=== PATIENT | male | born 1960 | race Two or more races ===

== ENCOUNTER → 2020-12-02 13:03 | Outpatient (BNVA) | payer OTHER, SELFPAY | PROVIDERS: PCP Psychiatry & Neurology Psychiatry; Visit Provider Internal Medicine Cardiovascular Disease | DX: R07.2 Precordial pain (principal) | CPT/HCPCS: 93005; 99202 ==

== ENCOUNTER → 2020-12-11 08:59 | Outpatient (REF) | payer OTHER, SELFPAY ==
--- NOTE | 2020-12-11 09:06 | CA_ITS ---
Acquisition Time: 2020-12-11 09:17:05 Total Exercise Time: 00:04:06 Test Indications: CP Medications: SEE CHART Protocol: TERE Max HR: 155 BPM 97% of Pred: 159 BPM Max BP: 204/066 mmHG Max Work Load: 5.9 METS Exercise stress test using Tere protocol, total of 4 min 6 sec. METS 5.90, MAPHR up to 97%. Pt became severely SOB and test was terminated. Denies CP. Upsloaping ST depressions seen inferiorly and laterally that normalized in recovery. No arrhythmias. Hypertensive response to exercise. Test reviewed with Dr. Marin, Communication sent to Dr. Hinojosa Referred By: Alo Hinojosa Overread By: Deepali Dos Santos NP
== END ==
LOC: HO.CARD 08:59
PROVIDERS: Visit Provider Internal Medicine Cardiovascular Disease
DX: R07.2 Precordial pain (principal)
CPT/HCPCS: 93017

== ENCOUNTER → 2020-12-21 15:38 | Outpatient (BNVA) | payer OTHER, SELFPAY | PROVIDERS: Visit Provider Internal Medicine Cardiovascular Disease ==

== ENCOUNTER → 2021-01-13 15:17 | Outpatient (REF) | payer OTHER, SELFPAY ==
--- NOTE | 2021-01-13 15:21 | CA_ITS ---
Transthoracic Echocardiogram Patient (Last, First, Middle): ANDREA ORTIZ, Gender: Male Date of : 1960 Age: 60 Procedure Date: 01/13/2021 Procedure Type: Transthoracic Echocardiogram Location: OP Height: 172.72 cm Weight: 75.01 kg BSA: 1.89 m2 Heart Rate: bpm BP: 130 / 72 mmHg Hands And Dial Inspector: Referring MD: Alo Hinojosa MD Symptoms: R07.2 - Precordial pain Study Quality: Good ECG Rhythm: Sinus Conclusions: - The left ventricular systolic function is normal. The calculated ejection fraction is 66% by biplane method. - No obvious valvular pathology seen on this study. Findings Left Ventricle Normal left ventricular cavity size. There is normal left ventricular wall thickness. The left ventricular systolic function is normal. The calculated ejection fraction is 66% by biplane method. There is no evidence of regional wall motion abnormalities. Diastolic function is normal for age. Right Ventricle Normal right ventricular cavity size and systolic function. Atria Both atria are normal in size. Aortic Valve There is a normal trileaflet aortic valve. There is no aortic valve stenosis. There is no aortic valve regurgitation. Mitral Valve The mitral valve appears normal. There is no mitral valve regurgitation. There is no mitral valve stenosis. Pulmonic Valve The pulmonic valve is likely normal. Tricuspid Valve Normal tricuspid valve structure. There is trace tricuspid valve regurgitation. The pulmonary artery systolic pressure is normal. Great Vessels The asc aorta is normal in size. Venous The inferior vena cava is normal in size and collapses greater than 50% with inspiration. Pericardium/Pleural There is no evidence of pericardial effusion. Prior Study Comparison No prior study available for comparison. Recommendations, Care & Conclusions No obvious valvular pathology seen on this study. Measurements 2D Linear Measurements IVSd: 1.02 0.6-0.9/0.6-1.0 cm LVIDd: 3.82 3.9-5.3/4.2-5.9 cm LVIDd Index: 2.02 2.4-3.2/2.2-3.1 cm/m2 LVIDs: 2.21 2.0-3.6 cm LVPWd: 1.07 0.7-1.1 cm Ao Root: 3.70 2.1-3.5 cm LA Diam: 3.10 2.7-3.8/3.0-4.0 cm LAIDs Index: 1.64 1.5-2.3 cm/m2 LV Mass: 156.71 67-162/88-224 g LV Mass Index: 82.92 43-95/49-115 g/m2 LVOT Diam: 2.00 3.0+(-)1.3 cm 2D Systolic Function EF 4C: 63.90 >55% EF 2C: 67.30 >55% EF BiP: 65.80 >55% Mitral Valve MV Pk E: 0.64 MV PK A: 0.88 MV Decel Time: 236.00 E/A: 0.70 E'Lateral: 9.14 E'Medial: 7.51 E/E' Med: 8.60 E/E' Lat: 7.00 PHT: 69.00 MVA PHT: 3.19 Decel [place]: 2.73 Aortic Valve AoV Pk Alistair: 1.43 AoV Mn [place]istair: 0.82 AoV VTI: 0.29 AoV Pk Grad: 8.00 Aov Mn Grad: 3.00 HUMAIRA Cont.VTI: 2.50 LVOT LVOT Pk [place]istair: 0.95 LVOT Mn [place]: 0.60 LVOT VTI: 0.23 LVOT Pk Grad: 4.00 LVOT Mn Grad: 2.00 LVOT Diam: 2.00 LVOT Area: 3.14 Diastolic Function MV Pk E: 0.64 MV Pk A: 0.88 E/A: 0.70 E'Medial: 7.51 E/E' Med: 8.60 E' Laterial: 9.14 E/E' Lat: 7.00 Right Ventricle TAPSE (mm): 21.00 TVS' Alistair: 12.00 Tricuspid Valve TR Pk Alistair: 1.62 TR Pk Grad: 10.00 Great Vessels Aorta Ao Root-2D: 3.70 2.0-3.7 cm Ao Asc: 3.40 2.1-3.4 cm Pulmonary Valve PV Pk Alistair: 1.18 Peak PV Grad: 6.00 Updated in Other Vendor System with Status of Final Demian Vasquez MD electronically signed on 01/14/2021 11:46:46 AM with status of Final
== END ==
LOC: HO.CARD 15:17
PROVIDERS: Visit Provider Internal Medicine Cardiovascular Disease
DX: R07.2 Precordial pain (principal)
CPT/HCPCS: 93306

== ENCOUNTER → 2021-07-01 13:47 | Outpatient (BNVA) | payer OTHER, SELFPAY | PROVIDERS: Visit Provider Nurse Practitioner Family | DX: I25.10 Atherosclerotic heart disease of native coronary artery without angina pectoris (principal); R06.02 Shortness of breath; R07.2 Precordial pain; Z95.1 Presence of aortocoronary bypass graft; Z98.890 Other specified postprocedural states | CPT/HCPCS: 99212 ==

== ENCOUNTER → 2022-03-15 14:21 | Outpatient (BNVA) | payer OTHER, SELFPAY | PROVIDERS: PCP Internal Medicine; Visit Provider Nurse Practitioner Family | DX: R07.2 Precordial pain (principal); R06.02 Shortness of breath; I25.10 Atherosclerotic heart disease of native coronary artery without angina pectoris; Z95.1 Presence of aortocoronary bypass graft; Z98.890 Other specified postprocedural states | CPT/HCPCS: 93005; 99212 ==

== ENCOUNTER → 2022-04-01 13:04 | Outpatient (REF) | payer OTHER, SELFPAY ==
--- NOTE | 2022-04-01 13:14 | CA_ITS ---
Transthoracic Echocardiogram Patient (Last, First, Middle): ANDREA ORTIZ, Gender: Male Date of : 1960 Age: 61 Procedure Date: 04/01/2022 Procedure Type: Transthoracic Echocardiogram Location: OP Height: 167.64 cm Weight: 68.01 kg BSA: 1.77 m2 Heart Rate: 66 bpm BP: 118 / 60 mmHg Timing Adjuster: TABATHA Referring MD: Vanessa Coffman [employer] SALES COUNTER MANAGER-C Symptoms: Z95.1 - Presence of aortocoronary bypass graft Study Quality: Good ECG Rhythm: Sinus Conclusions: - The left ventricular systolic function is normal. The calculated ejection fraction is 58% by biplane method. - There is mildly decreased right ventricular systolic function. - No obvious valvular pathology seen on this study. Findings Left Ventricle Normal left ventricular cavity size. There is normal left ventricular wall thickness. The left ventricular systolic function is normal. The calculated ejection fraction is 58% by biplane method. There is no evidence of regional wall motion abnormalities. There is paradoxical septal motion consistent with post-operative status. Diastolic function is normal for age. Right Ventricle Normal right ventricular cavity size. There is mildly decreased right ventricular systolic function. Atria Both atria are normal in size. Aortic Valve There is a normal trileaflet aortic valve. There is no aortic valve stenosis. There is no aortic valve regurgitation. Mitral Valve The mitral valve appears normal. There is no mitral valve regurgitation. There is no mitral valve stenosis. Pulmonic Valve The pulmonic valve is likely normal. Tricuspid Valve Normal tricuspid valve structure. There is trace tricuspid valve regurgitation. There is no evidence of pulmonary hypertension. Great Vessels The aortic annulus, sinuses of valsalva, and asc aorta are normal in size. Venous The inferior vena cava is normal in size and collapses greater than 50% with inspiration. Pericardium/Pleural There is no evidence of pericardial effusion. Prior Study Comparison No significant change compared to prior study dated: 01/13/2021. Recommendations, Care & Conclusions No obvious valvular pathology seen on this study. Measurements 2D Linear Measurements IVSd: 0.70 0.6-0.9/0.6-1.0 cm LVIDd: 4.61 3.9-5.3/4.2-5.9 cm LVIDd Index: 2.60 2.4-3.2/2.2-3.1 cm/m2 LVIDs: 2.92 2.0-3.6 cm LVPWd: 0.82 0.7-1.1 cm Ao Root: 3.40 2.1-3.5 cm LA Diam: 3.80 2.7-3.8/3.0-4.0 cm LAIDs Index: 2.15 1.5-2.3 cm/m2 LV Mass: 138.26 67-162/88-224 g LV Mass Index: 78.11 43-95/49-115 g/m2 LVOT Diam: 2.10 3.0+(-)1.3 cm 2D Systolic Function EF 4C: 60.60 >55% EF 2C: 57.50 >55% EF BiP: 57.80 >55% Mitral Valve MV Pk E: 0.53 MV PK A: 0.73 MV Decel Time: 238.00 E/A: 0.70 E'Lateral: 12.90 E'Medial: 5.11 E/E' Med: 10.30 E/E' Lat: 4.10 PHT: 70.00 MVA PHT: 3.14 Decel [place]: 2.22 Aortic Valve AoV Pk Alistair: 1.35 AoV Mn Alistair: 0.79 AoV VTI: 0.28 AoV Pk Grad: 7.00 Aov Mn Grad: 3.00 HUMAIRA Cont.VTI: 2.74 LVOT LVOT Pk Alistair: 1.02 LVOT Mn Alistair: 0.64 LVOT VTI: 0.22 LVOT Pk Grad: 4.00 LVOT Mn Grad: 2.00 LVOT Diam: 2.10 LVOT Area: 3.46 Diastolic Function MV Pk E: 0.53 MV Pk A: 0.73 E/A: 0.70 E'Medial: 5.11 E/E' Med: 10.30 E' Laterial: 12.90 E/E' Lat: 4.10 Right Ventricle TAPSE (mm): 14.00 TVS' Alistair: 7.00 Tricuspid Valve TR Pk Alistair: 1.51 TR Pk Grad: 9.00 RA Press: 3.00 RVSP: 12.00 Great Vessels Aorta Ao Root-2D: 3.40 2.0-3.7 cm Ao Asc: 3.40 2.1-3.4 cm Pulmonary Valve PV Pk Alistair: 1.06 Peak PV Grad: 4.00 Updated in Other Vendor System with Status of Final Demian Vasquez MD electronically signed on 04/02/2022 12:51:53 PM with status of Final
== END ==
LOC: HO.CARD 13:04
PROVIDERS: PCP Internal Medicine; Visit Provider Nurse Practitioner Family
DX: Z95.1 Presence of aortocoronary bypass graft (principal)
CPT/HCPCS: 93306

== ENCOUNTER 2023-01-26 14:50 | Outpatient (AMB) | payer SELFPAY ==
--- NOTE | 2023-01-26 14:52 | A.OFFVIS_ITS ---
Intake Vital Signs 01/26/23 14:53 Height 5 ft 8.5 in Weight 158 lb 11.725 oz BMI 23.8 BP 120/82 Blood Pressure Location Lt brachial Position Sitting Pulse 59 Intake Visit Reasons: OVERDUE FOLLOW UP Intake Note: overdue f/up having some chest discomfort when bending Windows Application Administrator Required: No Needle Loom Setter: Needle Loom Setter Present Accompanied by: Son Allergies No Known Allergies Allergy (Verified 01/26/23 15:01) Medication List - Last Reconciled 01/26/23 by Vanessa Coffman NP-C aspirin (Adult Aspirin Regimen) 81 mg PO DAILY atorvastatin 80 mg PO QPM HPI OVERDUE FOLLOW UP HPI Details Herbert is a 62-year-old male who previously reported shortness of breath and chest discomfort.? He had abnormal stress test and underwent cardiac catheterization showing severe ostial circumflex disease and distal left main disease then undergoing a 3 vessel Coronary artery bypass grafting on 05/18/2021.? His last prior visit to the office was 03/15/2022. Today he reports he has been feeling very well since his last visit. He has no reports of chest discomfort at rest or with activity. No shortness of breath, palpitations, presyncope, syncope, PND, orthopnea or edema. He takes all his meds as directed. He works part-time in a [employer] store. Son is present and assisting with translation at his request. [facility] Medical History CAD (coronary artery disease) Surgical History Status post cardiac catheterization Status post coronary artery bypass graft Family History Father No problems noted. Mother No problems noted. Social History Patient Tobacco Use Status: Never used Tobacco Review of Systems Const All systems reviewed & are unremarkable except as noted in HPI and below ENT Denies dizziness Card Denies chest pain, Denies chest pain at rest, Denies chest pain with activity, Denies rapid heart rate, Denies pedal edema, Denies edema, Denies leg edema, Denies lightheadedness, Denies palpitations, Denies dyspnea, Denies dyspnea on exertion and Denies orthopnea Resp Denies cough, Denies dyspnea and Denies dyspnea on exertion GI Denies hematochezia and Denies change in stool character Musc Denies abnormal gait, Denies limited range of motion, Denies muscle cramps, Denies muscle weakness, Denies numbness, Denies radiating pain into limb, Denies stiffness and Denies tingling Neuro Denies abnormal gait, Denies dizziness, Denies numbness and Denies tingling Endo Denies palpitations Physical Exam Vital Signs: Last Vital Signs Pulse 59 01/26/23 14:53 BP 120/82 01/26/23 14:53 BMI result Body Mass Index 23.8 Const General: cooperative, healthy appearing, comfortable and no acute distress Orientation/consciousness: patient oriented x3 Neck Neck: Yes normal visual inspection and Yes no JVD Resp Effort & Inspection: normal respiratory effort Auscultation: clear to auscultation bilaterally, no crackles, no rales, no rhonchi and no wheezes Cardio Jugular venous distension: no JVD Rate: regular rate Rhythm: regular rhythm Heart sounds: S1 normal heart sound present, S2 normal heart sound present, no gallops, no murmurs and no rubs Neuro General: patient oriented x3 Extrem General: Yes normal to inspection and No no pedal edema Psych Appearance: grossly normal Mental Status: mental status grossly normal Speech and movement: Normal speech and movement present Office Procedures EKG Details: Today, read by me, sinus bradycardia, no acute ST or T-wave abnormalities, septal Q which is present on prior EKG as well, QTC 384 milliseconds, rate 59 [id number], Complete Assessment & Plan Assessment & Plan (1) CAD (coronary artery disease): Code(s): I25.10 - Atherosclerotic heart disease of [place] coronary artery without angina pectoris Plan: Prior reports of shortness of breath and chest discomfort with activity. Exercise stress test done 12/11/2020 showed decreased exercise tolerance and severe shortness of breath with activity, with upsloping ST depression. Echocardiogram done 01/13/2021 showed EF 66% no regional wall motion abnormalities and no valve abnormalities. He continued to report symptoms and underwent a cardiac catheterization on 04/15/2021 showing severe ostial left ci rcumflex and distal left main stenosis, 65% mid LAD stenosis. He underwent a three-vessel Coronary artery bypass grafting on 05/18/2021 at [facility]. He has done well since that time. Last echocardiogram 04/01/2022 shows EF 58%, no valve abnormalities, mild decrease in the RV systolic function, overall no change from prior echo. EKG from today shows sinus rhythm with no acute ST or T-wave abnormalities, there is a septal Q present which is seen on prior EKG. Continues on aspirin indefinitely. He continues high-dose atorvastatin. He tells me he is not able to swallow those pills easily. Will change to atorvastatin 40 mg, take 2 tablets each night. His labs are followed by his PCP. There is no updated labs in our system. [place] LDL goal is less than 70. If LDL not at goal than Zetia should be added. Signs and symptoms of angina reviewed with him. Cardiology followup in 1 year, sooner if needed. (2) Status post cardiac catheterization: Comment: 04/15/2021, severe ostial left circumflex and distal left main stenosis, 65% mid LAD stenosis Code(s): Z98.890 - Other specified postprocedural states (3) Status post coronary artery bypass graft: Comment: 05/18/2021, CARTER to LAD, SVG graft to D1, left radial graft to OM, left atrial appendage ligation Code(s): Z95.1 - Presence of aortocoronary bypass graft (4) SOB (shortness of breath) on exertion: Code(s): R06.02 - Shortness of breath Plan: Resolved (5) Hyperlipidemia: Code(s): E78.5 - Hyperlipidemia, unspecified Plan: As above. Will try to obtain copy most recent labs from his PCP Medications: New atorvastatin 80 mg (2 x 40 mg) PO BEDTIME 90 days 180 tabs 3RF Refilled aspirin (Adult Aspirin Regimen) 81 mg PO DAILY 90 tabs 3RF Discontinued atorvastatin Discontinued Reason: Doctor's Order 80 mg PO QPM 90 tabs 3RF Coding Level of Care Code Est Pt Level 4 (05377) Diagnoses CAD (coronary artery disease) I25.10 Status post cardiac catheterization Z98.890 Status post coronary artery bypass graft Z95.1 SOB (shortness of breath) on exertion R06.02 Hyperlipidemia E78.5 CPT Codes EKG - CPT: [id number], Complete ([id number]) Time Spent (min) 30 Comment Chart review, documentation, interview, assessment
[2023-01-26 14:53] VITALS: BP 120/82; PULSE 59; BMI 23.8
== END 2023-01-26 15:22 | disposition home or self-care (01) ==
PROVIDERS: PCP Internal Medicine; Referring Provider Internal Medicine; Visit Provider Nurse Practitioner Family
DX: R00.1 Bradycardia, unspecified (principal)
CPT/HCPCS: 93010; 99214

== ENCOUNTER → 2023-01-26 14:50 | Outpatient (BNVA) | payer OTHER, SELFPAY | PROVIDERS: PCP Internal Medicine; Referring Provider Internal Medicine; Visit Provider Nurse Practitioner Family | DX: I25.10 Atherosclerotic heart disease of native coronary artery without angina pectoris (principal); E78.5 Hyperlipidemia, unspecified; Z79.82 Long term (current) use of aspirin; Z79.899 Other long term (current) drug therapy; Z95.1 Presence of aortocoronary bypass graft | CPT/HCPCS: 93005; 99212 ==